=== PATIENT | female | born 1960 | race Caucasian/White ===

== ENCOUNTER 2016-11-13 08:24 | Day surgery (SDC) | payer OTHER ==
[~2016-11-13 08:24] MED LIST: Buffered Lidocaine 0.9% SYRIN* 5 ML/SYR SYRINGE INTRADERM ONE; Famotidine IV* 10 MG/ML 2 ML (20 mg) IV ONE; Metoclopramide TAB* 10 MG PO ONE
[2016-11-13] MEDS ORDERED: Metoclopramide TAB* 10 MG ONE (08:27)
[2016-11-13] MEDS ORDERED: Buffered Lidocaine 0.9% SYRIN* 5 ML/SYR SYRINGE ONE (08:27)
[2016-11-13] MEDS ORDERED: Famotidine IV* 10 MG/ML 2 ML (20 mg) ONE (08:27)
[2016-11-13] MEDS ORDERED: Ketorolac INJ* 30 MG/ML 1 ML VIAL ONE (10:14)
[2016-11-13] MEDS ORDERED: Dexamethasone IV* 4 MG/ML 1 ML (4 MG) ONE (10:14)
[2016-11-13] MEDS ORDERED: fentaNYL* 50 MCG/ML 2 ML VIAL (100 MCG VIAL) ONE (10:14)
[2016-11-13] MEDS ORDERED: Ondansetron INJ* 2 MG/ML VIAL ONE (10:14)
[2016-11-13] MEDS ORDERED: Lidocaine 2% PF * 5 ML VIAL ONE (10:14)
[2016-11-13] MEDS ORDERED: Midazolam* 1 MG/ML 5 ML VIAL (5 MG) ONE (10:14)
[2016-11-13] MEDS ORDERED: Propofol* 10 MG/ML 20 ML BTL IV PUSH ONE (10:14)
[2016-11-13] MEDS ORDERED: KETAMINE HCL* 50 MG/ML 10 ML VIAL ONE (10:14)
[2016-11-13] MEDS ORDERED: oxyCODONE/Acetamin 5/325 MG* TAB PO PRN (11:01)
[2016-11-13] MEDS ORDERED: fentaNYL* 50 MCG/ML 2 ML VIAL (100 MCG VIAL) IV PRN (11:01)
[2016-11-13] MEDS ORDERED: Ondansetron INJ* 2 MG/ML VIAL IV PRN (11:01)
[2016-11-13] MEDS ORDERED: Labetalol IV* 5 MG/ML 20 ML VIAL ONE (11:29)
[2016-11-13 14:36] VITALS: BP 113/72
--- NOTE | 2016-11-14 05:59 | OP ---
DATE OF SURGERY: 11/13/16 [facility] DATE OF : 64 SURGEON: Tai Schwarz MD. ANESTHESIOLOGIST: Jose Mak MD ANESTHESIA: General anesthetic with endotracheal intubation. PRE-OP DIAGNOSES: Endometrial hyperplasia with no atypia and endometrial polyps. POST-OP DIAGNOSES: Endometrial hyperplasia with no atypia and endometrial polyps, pending pathology. OPERATIVE PROCEDURE: Hysteroscopy and dilation and curettage. ESTIMATED BLOOD LOSS: Minimal. SPECIMEN SENT TO PATHOLOGY: Endometrial curettings. FLUIDS: She received 1 L of IV crystalloid fluid. URINE OUTPUT: 20 cc of clear urine. FINDINGS: On exam under anesthesia, the patient had a uterus which sounded to 10 cm in an anteverted position. Hysteroscopically, she was noted to have a proliferative endometrium with no obvious lesions and no obvious polyps noted. DESCRIPTION OF PROCEDURE: The patient was taken to the operating room where she was identified. She was placed on the operating table where a general anesthetic with endotracheal intubation was obtained without difficulty. She was then placed in the dorsal lithotomy position, prepped and draped in a normal sterile fashion. Attention was then brought on to the patient's perineum where the bladder was catheterized and cleared of urine with a straight catheter. Catheter was then removed from the patient's urethra. At this point , a weighted speculum was inserted into the patient's vagina. The cervix was identified, grasped with a single-tooth tenaculum. The uterus was then sounded to 10 cm and was noted to be in an anteverted position. The cervix was then dilated with Hegar dilators. Once I was able to introduce a 10 mm hysteroscope through the cervix, a survey of the patient's uterine cavity revealed findings as noted above. After the diagnostic hysteroscopy, I proceeded to remove the hysteroscope from the patient's uterus. The cervix was then further dilated and a sharp curettage was performed. Once the uterine cavity was deemed to be emptied, a second look with a hysteroscope was done to confirm complete denudation of the endometrial lining. At this point, all the instruments were removed from the patient's vagina. Sponge, lap, needle counts were correct x2. The endometrial curettings were sent to Pathology. The patient was then transferred to recovery room area in stable condition [id number]/[facility] #: [id number] [facility]
== END 2016-11-13 14:38 | disposition home or self-care (01) ==
LOC: OR 08:24
PROVIDERS: ATTEND Obstetrics & Gynecology
DX: N92.1 Excessive and frequent menstruation with irregular cycle (principal); N85.01 Benign endometrial hyperplasia; I10 Essential (primary) hypertension
CPT/HCPCS: 81025; 88305; A9270-GY; J1100; J1885; J2250; J2405; J2704; J3010